=== PATIENT | male | born 1945 | race Caucasian/White ===

== ENCOUNTER 2018-06-23 12:48 | Inpatient (IN) | payer BC, OTHER ==
[2018-06-23 17:49] LABS: ADD MAN DIFF? NO
[2018-06-23 17:53] LABS: BASOPHIL # 0.1 10^3/ul (0.0-0.1); BASOPHILS % 0.6 % (0.0-2.0); EOSINOPHILS # 0.2 10^3/ul (0.0-0.5); EOSINOPHILS % 2.3 % (0.0-7.0); HEMATOCRIT 34.5 % (42.0-52.0); HEMOGLOBIN 11.8 g/dl (14.0-18.0); LYMPHOCYTES # 2.3 10^3/ul (0.8-2.9); LYMPHOCYTES % 28.4 % (15.0-51.0); MEAN CORPUSCULAR HEMOGLOBIN 30.9 pg (29.0-33.0); MEAN CORPUSCULAR HGB CONC 34.2 g/dl (32.0-37.0); MEAN CORPUSCULAR VOLUME 90.3 fl (82.0-101.0); MEAN PLATELET VOLUME 8.6 fl (7.4-10.4); MONOCYTE # 0.7 10^3/ul (0.3-0.9); NEUTROPHIL # 4.9 10^3/ul (1.6-7.5); NEUTROPHILS % 59.5 % (39.0-77.0); PLATELET COUNT 340 10^3/UL (140-415); RED BLOOD COUNT 3.82 10^6/ul (4.70-6.10); RED CELL DISTRIBUTION WIDTH 13.9 % (11.5-14.5)
[2018-06-23 17:53] LABS: WHITE BLOOD COUNT 8.3 10^3/ul (4.8-10.8)
[2018-06-23] MEDS: SOD CHLORIDE 0.9% 500 ML IV (17:53)
[2018-06-23] MEDS: KETOROLAC 15 MG INJ IV (17:53)
[2018-06-23 18:11] LABS: INR 1.06; PROTIME 13.9 Sec (11.9-14.9); PT RATIO 1.1
[2018-06-23 18:12] LABS: ALANINE AMINOTRANSFERASE 32 IU/L (13-69); ALBUMIN/GLOBULIN RATIO 1.25; ALKALINE PHOSPHATASE 90 IU/L (42-121); ANION GAP 19 (8-16); ASPARTATE AMINO TRANSFERASE 24 IU/L (15-46); BLOOD UREA NITROGEN 13 mg/dl (7-20); CALCIUM 9.3 mg/dl (8.4-10.2); CARBON DIOXIDE 21 mmol/L (21-31); CHLORIDE 105 mmol/L (97-110); CREATININE 0.88 mg/dl (0.61-1.24); GLUCOSE 204 mg/dl (70-220); LIPASE 63 U/L (23-300); PARTIAL THROMBOPLASTIN TIME 24.7 Sec (25.0-35.0); POTASSIUM 5.2 mmol/L (3.5-5.1); SODIUM 140 mmol/L (135-144); TOTAL PROTEIN 7.2 g/dl (6.1-8.1)
[2018-06-23] MEDS: ASPIRIN 81 MG TAB PO (18:15)
[2018-06-23 18:19] LABS: AMMONIA < 9 umol/l (9-30)
[2018-06-23 18:23] LABS: TROPONIN-I < 0.012 ng/ml (0.000-0.120)
[2018-06-23] MEDS ORDERED: NITROGLYCERIN (SL) 0.4 MG TAB SL (19:00)
[2018-06-23] MEDS ORDERED: BISACODYL 10 MG SUPP PR (19:00)
[2018-06-23] MEDS ORDERED: LORAZEPAM 0.5 MG TAB PO (19:00)
[2018-06-23] MEDS ORDERED: ACETAMINOPHEN 325 MG TAB PO (19:00)
[2018-06-23] MEDS ORDERED: ONDANSETRON 4 MG INJ IV (19:00)
[2018-06-23] MEDS ORDERED: morphine 2 MG INJ IV (19:00)
[2018-06-23] MEDS ORDERED: MAGNESIUM HYDROXIDE 30ML CUP PO (19:00)
[2018-06-23] MEDS ORDERED: DOCUSATE SODIUM 100 MG CAP PO (19:00)
[2018-06-23] MEDS ORDERED: NACL 0.9% 3 ML SYG IV (19:00)
[2018-06-23] MEDS: LIDOCAINE/MYLANTA 40 ML BTL PO (20:27)
[2018-06-23] MEDS: FAMOTIDINE 20 MG TAB PO (20:33)
[2018-06-23 21:01] LABS: AMPHETAMINE/METHAMPHETAMINE Negative (NEGATIVE); BARBITURATES Negative (NEGATIVE); BENZODIAZEPINES Negative (NEGATIVE); CANNABINOIDS Negative (NEGATIVE); COCAINE Negative (NEGATIVE); OPIATES Negative (NEGATIVE)
[2018-06-23 23:46] LABS: CREATINE KINASE 73 IU/L (23-200)
[2018-06-23 23:55] LABS: CK INDEX 1.3; CK-MB 0.94 ng/ml (0.0-2.4); TROPONIN-I < 0.012 ng/ml (0.000-0.120)
[2018-06-24 07:37] LABS: ALANINE AMINOTRANSFERASE 22 IU/L (13-69); ALBUMIN 3.1 g/dl (3.3-4.9); ALKALINE PHOSPHATASE 67 IU/L (42-121); ANION GAP 13 (8-16); ASPARTATE AMINO TRANSFERASE 23 IU/L (15-46); BILIRUBIN,INDIRECT 2.1 mg/dl (0-1.1); BILIRUBIN,TOTAL 2.1 mg/dl (0.2-1.3); BLOOD UREA NITROGEN 11 mg/dl (7-20); CALCIUM 8.2 mg/dl (8.4-10.2); CARBON DIOXIDE 25 mmol/L (21-31); CHLORIDE 106 mmol/L (97-110); CHOL/HDL RATIO 4.2 RATIO; CHOLESTEROL 123 mg/dl (100-200); CREATININE 0.85 mg/dl (0.61-1.24); GLUCOSE 136 mg/dl (70-220); HDL CHOLESTEROL 29 mg/dl (31-75); LDL CHOLESTEROL,CALCULATED 73 mg/dl; POTASSIUM 4.4 mmol/L (3.5-5.1); SODIUM 140 mmol/L (135-144); TOTAL PROTEIN 5.9 g/dl (6.1-8.1); TRIGLYCERIDES 103 mg/dl (0-149)
[2018-06-24 07:38] LABS: CK-MB 0.79 ng/ml (0.0-2.4); TROPONIN-I < 0.012 ng/ml (0.000-0.120)
[2018-06-24 08:12] LABS: FREE T4 (FREE THYROXINE) 1.18 ng/dl (0.78-2.44)
[2018-06-24 08:21] LABS: CK INDEX 1.3; CREATINE KINASE 59 IU/L (23-200)
[2018-06-24] MEDS ORDERED: NON-FORMULARY/PATIENT OWN MED (Sitagliptin* (Januvia*) 50 MG) PO (09:00)
[2018-06-24] MEDS: FAMOTIDINE 20 MG TAB PO (09:00)
[2018-06-24] MEDS: ASPIRIN 81 MG TAB PO (09:00)
[2018-06-24] MEDS: ENOXAPARIN 40 MG/0.4 ML SYG SC (09:03)
[2018-06-24] MEDS: FENOFIBRATE 145 MG TAB PO (09:32)
[2018-06-24] MEDS: LOSARTAN 25 MG TAB PO (09:32)
[2018-06-24] MEDS: LINAGLIPTIN 5 MG TABLET PO (09:41)
[2018-06-24] MEDS ORDERED: REGADENOSON 0.4 MG/5 ML SYG (09:43)
[2018-06-24 09:53] LABS: HEMOGLOBIN A1C 8.6 % (0-5.9)
[2018-06-24] MEDS: INSULIN ASPART [NOVOLOG] 3 ML PEN SC (12:29)
[2018-06-24] MEDS ORDERED: TERAZOSIN 5 MG CAP PO (21:00)
[2018-06-25] MEDS ORDERED: ACCU-CHEK XX (02:00)
== END 2018-06-24 16:50 | disposition home or self-care (01) | DRG 313 ==
LOC: E/R 12:48 → TEL 18:27
DX: R07.89 Other chest pain (principal); R42 Dizziness and giddiness; E87.5 Hyperkalemia; I10 Essential (primary) hypertension; E11.9 Type 2 diabetes mellitus without complications; E78.5 Hyperlipidemia, unspecified; Z79.4 Long term (current) use of insulin; Z79.82 Long term (current) use of aspirin
CPT/HCPCS: 36415; 71045; 76705; 78452; 80053; 80061; 80307; 82140; 82550; 82553; 82962; 83036; 83690; 84439; 84443; 84484; 85025; 85610; 85730; 93005; 93017; 93306; 96361; 96374; 99285-25